=== PATIENT | male | born 1990 | race Caucasian/White ===

== ENCOUNTER 2017-03-05 11:39 | Emergency (ER) | payer BC ==
[2017-03-05 12:43] LABS: A/G RATIO 1.3; ALBUMIN 4.7 g/dL (3.5-5.0); ALKALINE PHOSPHATASE 66 U/L (38-126); ALT 65 U/L (21-72); AST 28 U/L (17-59); BLOOD UREA NITROGEN 7 mg/dL (9-20); CALCIUM 9.9 mg/dL (8.4-10.2); CHLORIDE 105 mmol/L (98-107); EST GLOMERULAR FILTRATION RATE > 60 mL/min; GLUCOSE 100 mg/dL (70-100); POTASSIUM 3.7 mmol/L (3.5-5.1); SODIUM 141 mmol/L (137-145); TOTAL PROTEIN 8.2 g/dL (6.3-8.2)
[2017-03-05 12:57] LABS: BASOPHIL# 0.1 X 10^3uL (0.0-0.1); BASOPHILS 0.8 % (0.0-2.0); EOSINOPHILS# 0.1 X 10^3uL (0.0-0.4); HEMATOCRIT 47.4 % (42.0-54.0); HEMOGLOBIN 16.4 g/dL (14.0-18.0); LYMPHOCYTES# 2.6 X 10^3uL (0.8-3.8); MEAN CELL VOLUME 84.7 fL (80.0-100.0); MEAN CORPUS. HGB CONCENTRATION 34.6 g/dL (32.0-36.0); MEAN CORPUSCULAR HEMOGLOBIN 29.3 pg (29.0-35.0); MEAN PLATELET VOLUME 8.6 fL (7.4-10.4); MONOCYTES 7.3 % (2.0-10.0); MONOCYTES# 0.6 X 10^3uL (0.2-1.0); NEUTROPHILS 57.9 % (54.0-75.0); NEUTROPHILS# 4.6 X 10^3uL (2.6-6.7); PLATELET COUNT 429 X 10^3uL (130-440); RED BLOOD COUNT 5.59 X 10^6uL (4.20-6.10); RED CELL DISTRIBUTION WIDTH 11.9 % (11.5-14.5)
--- NOTE | 2017-03-05 15:36 | CT REPORT ---
HISTORY: Dizziness. COMPARISON: None TECHNIQUE: Axial CT images were obtained through the head and reformatted in coronal planes without the intraven ous administration of contrast. Dose reduction technique was utilized. FINDINGS: There is no acute infarct, hemorrhage, mass, hydrocephalus or midline shift. There is no acute calvarial fracture. The visualized portions of the paranasal sinuses and the bilate ral mastoid air cells are clear. IMPRESSION: Negative CT head examination. Final Electronic Signature: This report was electronically signed by Anders Pham MD on 03/05/20 17 3:34 PM. jesenia /
[2017-03-05] MEDS ORDERED: IBUPROFEN 600 MG TABLET PO ONE (17:41)
[2017-03-05 17:54] LABS: CSF GLUCOSE 51 mg/dL (40-70); CSF TOTAL PROTEIN 40 mg/dL (12-60)
[2017-03-05 18:08] LABS: FLUID COLOR TUBE 1 PINK (COLORLESS); FLUID VOLUME 5 mL
[2017-03-05] MEDS ORDERED: ONDANSETRON ODT 4 MG TAB.RAPDIS ONE (19:07)
[2017-03-05] MEDS ORDERED: ONDANSETRON ODT PREPAC 4 MG TAB.RAPDIS PO ONE (19:22)
--- NOTE | 2017-03-05 19:23 | ER NURSING DOCUMENTATION ---
Nurse's Notes [facility] Name:Anders Ram Age:26 yrs Sex:Male :1990 Arrival Date:03/05/2017 Time:11:39 Bed4 Private MD: Diagnosis:Lyme Disease Presentation: 03/05 11:53 Presenting complaint: Patient states: Weakness, fatigue, joint pain. Transition of lp care: Home. Notified ED Physician of Dr. Mac notified. 11:53 Acuity: GERI 3 lp 11:53 Method Of Arrival: Private Vehicle lp 15:03 Acuity: GERI 2 lpr Triage Assessment: 11:56 General: Appears in no apparent distress, Behavior is appropriate for age. Pain: lp Complains of pain in Joint pain. EENT: No deficits noted. Neuro: No deficits noted. Cardiovascular: Heart tones S1 S2. Respiratory: Breath sounds are clear bilaterally. GI: Bowel sounds present X 4 quads. : No deficits noted. Derm: No deficits noted. Historical: - Allergies: No known drug Allergies; Several food allergies; - Home Meds: 1. doxycycline hyclate 100 mg oral cap 1 cap every 12 hours 2. Flovent Inhl Unknown nightly 3. omeprazole 40 mg oral cpDR 1 cap once daily before a meal 4. probiotics - PMHx: Eosinophilic Esophagitis; - PSHx: None; - Tetanus: unknown. - Ebola Screening: : Patient negative for fever greater than or equal to 101.5 degrees Fahrenheit, and additional compatible Ebola Virus Disease symptoms. Patient denies exposure to infectious person. Patient denies travel to an Ebola-affected area in the 21 days before illness onset. . - Immunization history: Flu Vaccine < 1 year. - Social history: Smoking status: Patient states was never smoker of tobacco. Screenin:57 Infectious Disease Risk None. Abuse screen: Denies threats or abuse. Denies injuries lp from another. Nutritional screening: No deficits noted. Assessment: 11:57 See Triage Assessment done by same RN. lp 19:15 General: Appears in no apparent distress. Pain: Complains of pain in back. Neuro: Level lpr of Consciousness is awake, alert, obeys commands, Oriented to person, place, time. Respiratory: Airway is patent Respiratory effort is even, unlabored, Respiratory pattern is regular, symmetrical. Derm: Skin is pink, warm & dry. Musculoskeletal: Range of motion intact in all extremities. Vital Signs: 11:56 BP 136 / 92; Pulse 88; Resp 16; Temp 98.8(TE); Pulse Ox 98% on R/A; Weight 65 kg; lp Height 6 ft. 0 in. (182.88 cm); Pain 3/10; 17:21 BP 121 / 72 (auto/); lpr 17:25 BP 121 / 72; Pulse 78; Resp 16; Pulse Ox 94% on R/A; Pain 1/10; lc 17:25 Pulse Ox 95% ; lpr 19:20 Pain 6/10; lpr 11:56 Body Mass Index 19.43 (65.00 kg, 182.88 cm) lp ED Course: 11:40 Patient arrived in ED. dp 11:53 Marimar Bailey, MATT is Primary Nurse. lp 11:54 Evert Mac MD is Attending Physician. tl1 11:54 Triage completed. lp 11:[address] Mac notified. lp 11:57 Valuables Remains with patient Patient has correct armband on for positive lp identification. Placed in gown. Bed in low position. Call light in reach. Side rails up X 1. 15:[address] tt 15:42 EKG attached lc 15:42 Procedure consent explained by physician, signed by patient. lpr 17:21 Assist Provider Assist provider with lumbar puncture: Set up LP tray. Performed by Evert Mca MD CSF is clear. is bloody. Other SL BLOODY Puncture site dressed with band aid, Procedure was successful. Patient tolerated well. Administered Medications: 12:19 CANCELLED (Physician Discretion): Doxycycline 200 mg IVPB once lp 12:19 Drug: NS 0.9% 1000 ml; Route: IV; Rate: bolus; Site: left antecubital; lp 13:11 Follow up: Response: No adverse reaction; IV Status: Completed infusion; IV Intake: lp 1000ml 17:26 Drug: Ibuprofen 600 mg; Route: PO; lpr 19:17 Follow up: Response: Pain is decreased lpr 18:59 Drug: HYDROcodone-acetaminophen 5 mg-325 mg 2 tabs; Route: PO; lpr 19:17 Follow up: Response: Pain is decreased lpr 18:59 Drug: Zofran 4 mg; Route: PO; lpr 19:18 Follow up: Response: Nausea is decreased lpr 19:17 Drug: HYDROcodone-acetaminophen (5mg/325 mg) 1-2 tabs 1 tabs; Route: PO; lpr 19:18 Follow up: Response: Pharmacy closed - take home med pack lpr 19:17 Drug: Zofran 1 tablet; Route: PO; lpr 19:18 Follow up: Response: Pharmacy closed - take home med pack lpr Point of Care Testing: Urine Dip: 12:26 pH: 7.0; ; Specific [place]: 1.010; Ketones: Negative; Glucose: Negative; Protein: lp Negative; Leukocytes: Negative; Nitrite: Negative ; Blood: Negative; Bilirubin: Negative ; Urobilinogen: Normal Intake: 13:11 IV: 1000ml; Total: 1000ml. lp Outcome: 13:14 Report given to Samantha Morgan RN 18:59 Discharge ordered by . tl1 19:18 Discharged to home ambulatory, with family. lpr 19:18 Condition: good 19:18 Discharge Assessment: Patient awake, alert and oriented x 3. No cognitive and/or functional deficits noted. Patient verbalized understanding of disposition instructions. 19:18 Discharge instructions given to patient, family, Instructed on discharge instructions, follow up and referral plans. no drinking with medication, no driving heavy equipment. 19:18 IV D/[place] 19:22 Patient left the ED. lpr 03/06 10:27 Discharge F/U Call: Unable to reach: left voicemail: rh 12:57 Discharge F/U Call: Spoke with: patient. Are you having any pain? yes. Pain level is lc 4 / 10 Location and description of pain: back How are you managing your pain? Patient is taking medication: ibuprofen, tylenol, norco Have you filled your prescriptions? yes. Did your discharge instructions answer all of your questions? yes Overall Care on a scale of 1-10 with 10 being the best care, you rate our care as: Other comments: DISCUSSED BACK PAIN WITH DR MAC, TOLD PT TO ICE AND REST TODAY, F/U IF PAIN WORSENS OR NUMBNESS TO LEGS. Signatures: Samantha Morgan RN RN Marimar Bailey RN RN Martha Collado Leslie, RN RN formerly [facility] Sylvester Boateng Tom, MD MD tl1 Irene Joshi Dari Tenorio dp
--- NOTE | 2017-03-05 19:23 | ER PHYSICIAN DOCUMENTATION ---
Physician Documentation [facility] Name:Anders Ram Age:26 yrs Sex:Male :1990 Arrival Date:03/05/2017 Time:11:39 Bed4 Private MD: Evert Aguillon Disposition: 03/07 07:29 Chart complete. tl1 Disposition: 03/05/17 18:59 Discharged to Home/Self Care. Impression: Lyme Disease. - Condition is Good. - Prescriptions for [place] 5- 325 mg Oral Tablet - take 1 tablet by ORAL route every 6 hours As needed; 6 tablet. Zofran 4 mg Oral Tablet - take 1-2 tablet by ORAL route every 4-6 hours As needed; 10 tablet. - Medical Reconciliation form form. - Follow up: Private Physician; When: 4- 6 days; Reason: Recheck today's complaints, Continuance of care. - Problem is new. - Symptoms have improved. HPI: 03/05 11:40 This 26 yrs old Male presents to ER via Private Vehicle with complaints of tl1 generalized weakness, malaise and occasionally, difficulty finishing sentences or continuing with a thought. 11:40 On 03/09 he was bitten by a tick in [place]. A week ago he was diagnosed with Lyme tl1 disease and started on doxycycline. He initially felt a little better, but over the last day or two has noticed increasing malaise, myalgias and joint pain, with subtle speech problems, such as difficulty finishing sentences or subtle mental slowness. He is brought in by family for evaluation. He currently denies h/a, fever or focal neurologic symptoms. Historical: - Allergies: No known drug Allergies; Several food allergies; - Home Meds: 1. doxycycline hyclate 100 mg oral cap 1 cap every 12 hours 2. Flovent Inhl Unknown nightly 3. omeprazole 40 mg oral cpDR 1 cap once daily before a meal 4. probiotics - PMHx: Eosinophilic Esophagitis; - PSHx: None; - Tetanus: unknown. - Ebola Screening: : Patient negative for fever greater than or equal to 101.5 degrees Fahrenheit, and additional compatible Ebola Virus Disease symptoms. Patient denies exposure to infectious person. Patient denies travel to an Ebola-affected area in the 21 days before illness onset. . - Immunization history: Flu Vaccine < 1 year. - Social history: Smoking status: Patient states was never smoker of tobacco. ROS: 11:40 Neuro: Positive for weakness, Negative for dizziness, gait disturbance, headache, tl1 hearing loss, seizure activity. Exam: 11:40 Constitutional: This is a well developed, well nourished patient who is awake, alert, tl1 and in no acute distress. Head/Face: Normocephalic, atraumatic. 11:40 Eyes: Pupils equal round and reactive to light, extra-ocular motions intact. Lids and tl1 lashes normal. Conjunctiva and sclera are non-icteric and not injected. Cornea within normal limits. Periorbital areas with no swelling, redness, or edema. 11:40 ENT: 11:40 Neck: ROM/movement: is normal, is supple, Lymph nodes: no appreciated lymphadenopathy. 11:40 Cardiovascular: Rate: normal. 11:40 Respiratory: Respirations: normal. 11:40 Neuro: Orientation: is normal, Mentation: is normal, Memory: is normal, Cranial nerves: grossly normal, Cerebellar function: is grossly normal, Motor: moves all fours, Gait: is steady, at a normal pace, without difficulty, appropriate for age. Vital Signs: 11:56 BP 136 / 92; Pulse 88; Resp 16; Temp 98.8(TE); Pulse Ox 98% on R/A; Weight 65 kg; lp Height 6 ft. 0 in. (182.88 cm); Pain 3/10; 17:21 BP 121 / 72 (auto/); lpr 17:25 BP 121 / 72; Pulse 78; Resp 16; Pulse Ox 94% on R/A; Pain 1/10; lc 17:25 Pulse Ox 95% ; lpr 19:20 Pain 6/10; lpr 11:56 Body Mass Index 19.43 (65.00 kg, 182.88 cm) lp Procedures: 11:40 Lumbar Puncture: Patient placed in left lateral decubitus position. Prepped with tl1 Betadine. Draped using sterile technique. Collected 7 ml's of clear fluid. bloody fluid. Puncture site dressed with band aid, Patient tolerated well. fluid was initially clear, then became pink, with some clearing toward the end of the colleciton. Initial opening pressure was 12 cm . MDM: 11:40 Data reviewed: vital signs, nurses notes, lab test result(s), csf, radiologic studies, tl1 CT scan, and as a result, I will discharge patient. Counseling: I had a detailed discussion with the patient and/or guardian regarding: the historical points, exam findings, and any diagnostic results supporting the discharge/admit diagnosis, lab results, radiology results, the need for outpatient follow up, with the patient's primary care provider, to return to the emergency department if symptoms worsen or persist or if there are any questions or concerns that arise at home. Response to treatment: There is no appreciated change of the patient's symptoms at this time. Response to treatment: and as a result, I will discharge patient. Physician consultation: Dr Orr was called at 12:00, regarding patient's condition, He advised HCT and LP, WITH no change in therapy if CSF has no WBC. 11:53 Patient medically screened. tl1 15:42 EKG attached lc 03/05 12:56 Order name: COMPREHENSIVE METABOLIC PANEL; Complete Time: 13:34 EDMS 03/05 13:34 Interpretation: Normal. tl1 03/05 12:57 Order name: CBC AUTO DIF, MDIF/RMOR IF IND; Complete Time: 13:34 EDMS 03/05 13:34 Interpretation: Normal: WHITE BLOOD COUNT 8.0; HEMOGLOBIN 16.4; HEMATOCRIT 47.4; tl1 PLATELET COUNT 429. 07 17:56 Order name: CSF GLUCOSE; Complete Time: 18:56 EDMS 03/05 17:56 Order name: CSF TOTAL PROTEIN; Complete Time: 18:56 EDMS 03/05 18:09 Order name: WBC WITH DIF, CSF; Complete Time: 18:56 EDMS 03/05 19:34 Order name: CSF CULTURE AND GRAM STAIN; Complete Time: 07:30 EDMS 03/05 15:39 Order name: CAT SCAN; HEAD W/O CON 16795; Complete Time: 18:56 EDMS 03/07 07:29 Interpretation: NAD. SEE NOTE. tl1 Dispensed Medications: 12:19 CANCELLED (Physician Discretion): Doxycycline 200 mg IVPB once lp 12:19 Drug: NS 0.9% 1000 ml; Route: IV; Rate: bolus; Site: left antecubital; lp 13:11 Follow up: Response: No adverse reaction; IV Status: Completed infusion; IV Intake: lp 1000ml 17:26 Drug: Ibuprofen 600 mg; Route: PO; lpr 19:17 Follow up: Response: Pain is decreased lpr 18:59 Drug: HYDROcodone-acetaminophen 5 mg-325 mg 2 tabs; Route: PO; lpr 19:17 Follow up: Response: Pain is decreased lpr 18:59 Drug: Zofran 4 mg; Route: PO; lpr 19:18 Follow up: Response: Nausea is decreased lpr 19:17 Drug: HYDROcodone-acetaminophen (5mg/325 mg) 1-2 tabs 1 tabs; Route: PO; lpr 19:18 Follow up: Response: Pharmacy closed - take home med pack lpr 19:17 Drug: Zofran 1 tablet; Route: PO; lpr 19:18 Follow up: Response: Pharmacy closed - take home med pack lpr Point of Care Testing: Urine Dip: 12:26 pH: 7.0; ; Specific [place]: 1.010; Ketones: Negative; Glucose: Negative; Protein: lp Negative; Leukocytes: Negative; Nitrite: Negative ; Blood: Negative; Bilirubin: Negative ; Urobilinogen: Normal Signatures: Samantha Morgan RN RN lc Pavlish, Lena, RN RN lp Roberts, Leslie, RN RN lpr Leigh, Tom, MD MD tl1
== END 2017-03-05 19:23 | disposition home or self-care (01) ==
LOC: ER 11:39
DX: A69.20 Lyme disease, unspecified (principal); R53.1 Weakness; Z79.899 Other long term (current) drug therapy
CPT/HCPCS: 62270; 70450; 80053; 82945; 84157; 85007; 85025; 87070; 87205; 89051; 96360; 99284

== ENCOUNTER 2017-03-08 08:50 | Emergency (ER) | payer BC ==
--- NOTE | 2017-03-08 11:43 | ER NURSING DOCUMENTATION ---
Nurse's Notes [facility] Name:Anders Ram Age:26 yrs Sex:Male :1990 Arrival Date:03/08/2017 Time:08:50 Bed3 Private MD: Diagnosis:Lyme Disease Presentation: 03/08 08:59 Acuity: GERI 3 st 09:07 Presenting complaint: Patient states: pt had a spinal tap on Saturday for work up on a st dx of Lyme desies. He has had a headache since. Transition of care: patient was not received from another setting of care. 09:07 Method Of Arrival: Private Vehicle st Triage Assessment: 08:55 General: Appears uncomfortable, Behavior is cooperative. Pain: Complains of pain in st headache Pain currently is 8 out of 10 on a pain scale. Pain began 2-3 days ago. Neuro: Level of Consciousness is awake, alert, Oriented to person, place, time, event, [employer] are equal bilaterally Moves all extremities. Cardiovascular: No deficits noted. Respiratory: No deficits noted. GI: No deficits noted. Historical: - Allergies: No known drug Allergies; - Home Meds: 1. doxycycline hyclate 100 mg oral cap 1 cap every 12 hours 2. Flovent Inhl Unknown nightly 3. omeprazole 40 mg oral cpDR 1 cap once daily before a meal 4. probiotics - PMHx: Eosinophilic Esophagitis; Lyme Disease (March 05, 2017); - PSHx: NONE; - Tetanus: < 10 years. - Ebola Screening: : Patient denies exposure to infectious person. Patient denies travel to an Ebola-affected area in the 21 days before illness onset. . - Immunization history: Unable to Obtain. - Social history: Smoking status: . Screenin:41 Infectious Disease Risk None. Abuse screen: Denies threats or abuse. Denies injuries st from another. Nutritional screening: No deficits noted. Assessment: 09:31 General: pt states headache is better after patch. . st 09:52 General: pt states his headache is gone. pt remains flat. . st 10:36 General: head of bed raised another 10 degrees. pt doing well. . st 10:53 General: pt sat up a little more. pt remains pain free. . st Vital Signs: 08:58 BP 122 / 76 (auto/); Pulse 76; Pain 8/10; st 08:59 Pulse Ox 98% ; st 09:30 BP 115 / 69 (auto/); Pulse 71; st 09:34 Pulse Ox 98% ; st 09:45 BP 109 / 63 (auto/); Pulse 72; st 09:49 Pulse Ox 96% ; st 09:52 Pain 0/10; st 10:00 BP 121 / 71 (auto/); Pulse 78; st 10:04 Pulse Ox 94% ; st 10:15 BP 109 / 71 (auto/); Pulse 69; st 10:19 Pulse Ox 96% ; st 10:30 BP 112 / 67 (auto/); Pulse 70; st 10:34 Pulse Ox 96% ; st 10:45 BP 113 / 70 (auto/); Pulse 71; st 10:49 Pulse Ox 94% ; st 11:00 BP 122 / 70 (auto/); Pulse 70; st 11:04 Pulse Ox 94% ; st 11:15 BP 110 / 74 (auto/); Pulse 62; st 11:19 Pulse Ox 96% ; st 11:30 BP 120 / 83 (auto/); Pulse 68; st ED Course: 08:52 Patient arrived in ED. ama 08:54 Carlos Dimas MD is Attending Physician. be 08:59 Brenda Nicolas RN is Primary Nurse. st 08:[address] 09:30 Assist Provider blood patch preformed by Hola De Leon. st 09:31 Oxygen O2 via during proceeder only. st 09:31 Inserted peripheral IV: 20 gauge in right antecubital area and blood collected. st 11:41 Valuables Remains with patient. st Administered Medications: 09:32 Drug: NS 0.9% 1000 ml; Route: IV; Rate: bolus; Site: right antecubital; st 11:42 Follow up: IV Status: Completed infusion; IV Intake: 700ml st Intake: 11:42 IV: 700ml; Total: 700ml. st Outcome: 11:41 Discharged to home ambulatory. st 11:41 Condition: improved 11:41 Discharge instructions given to patient, Instructed on discharge instructions, follow up and referral plans. 11:42 No charge visit due to pt came in for an out pt blood patch.. st 11:43 Discharge ordered by . st 11:43 Patient [address] the ED. st 0708 09:22 Discharge F/U Call: Unable to reach: no answer st Signatures: Brenda Nicolas, RN RN st Carlos Dimas MD MD be Averdick, Andrew, Reg Reg ama
--- NOTE | 2017-03-10 11:43 | ER PHYSICIAN DOCUMENTATION ---
Physician Documentation [facility] Name:Anders Ram Age:26 yrs Sex:Male :1990 Arrival Date:03/08/2017 Time:08:50 Bed3 Private MD: Carlos Nguyen Disposition: 03/08/17 11:43 Discharged to Home/Self Care. Impression: Lyme Disease. - Condition is Good. - Medical Reconciliation form form. - Follow up: Emergency Department; When: As needed. HPI: 03/08 12:33 This 26 yrs old Male presents to ER via Private Vehicle with complaints of be Headache. 12:33 Onset: The symptoms/episode began/occurred gradually, and became persistent and worse be with upright positioning. Associated signs and symptoms: Pertinent positives: dizziness, nausea, Pertinent negatives: altered mental status, fever. Severity of symptoms: At its worst the pain was severe, just prior to arrival. diagnostic LP by Dr. Mac. Historical: - Allergies: No known drug Allergies; - Home Meds: 1. doxycycline hyclate 100 mg oral cap 1 cap every 12 hours 2. Flovent Inhl Unknown nightly 3. omeprazole 40 mg oral cpDR 1 cap once daily before a meal 4. probiotics - PMHx: Eosinophilic Esophagitis; Lyme Disease (March 05, 2017); - PSHx: NONE; - Tetanus: < 10 years. - Ebola Screening: : Patient denies exposure to infectious person. Patient denies travel to an Ebola-affected area in the 21 days before illness onset. . - Immunization history: Unable to Obtain. - Social history: Smoking status: . ROS: 12:33 Neuro: Positive for headache, Negative for altered mental status. be 12:33 All other systems are negative. Exam: 12:33 Constitutional: This is a well developed, well nourished patient who is awake, alert, be and in no acute distress. 12:33 Eyes: Pupils: equal, round, and reactive to light and accomodation. 12:33 Neck: ROM/movement: no acute changes, nuchal rigidity, is not appreciated. Vital Signs: 08:58 BP 122 / 76 (auto/); Pulse 76; Pain 8/10; st 08:59 Pulse Ox 98% ; st 09:30 BP 115 / 69 (auto/); Pulse 71; st 09:34 Pulse Ox 98% ; st 09:45 BP 109 / 63 (auto/); Pulse 72; st 09:49 Pulse Ox 96% ; st 09:52 Pain 0/10; st 10:00 BP 121 / 71 (auto/); Pulse 78; st 10:04 Pulse Ox 94% ; st 10:15 BP 109 / 71 (auto/); Pulse 69; st 10:19 Pulse Ox 96% ; st 10:30 BP 112 / 67 (auto/); Pulse 70; st 10:34 Pulse Ox 96% ; st 10:45 BP 113 / 70 (auto/); Pulse 71; st 10:49 Pulse Ox 94% ; st 11:00 BP 122 / 70 (auto/); Pulse 70; st 11:04 Pulse Ox 94% ; st 11:15 BP 110 / 74 (auto/); Pulse 62; st 11:19 Pulse Ox 96% ; st 11:30 BP 120 / 83 (auto/); Pulse 68; st Procedures: 12:33 Performed Blood patch performed by HEATH Simental. be MDM: 08:54 Patient medically screened. be 12:33 Data reviewed: vital signs, nurses notes, old medical records, and as a result, I will be discharge patient, administer IV fluids, NS bolus. Dispensed Medications: 09:32 Drug: NS 0.9% 1000 ml; Route: IV; Rate: bolus; Site: right antecubital; st 11:42 Follow up: IV Status: Completed infusion; IV Intake: 700ml st Signatures: Brenda Nicolas RN RN Carlos Howard MD MD be
== END 2017-03-08 11:43 | disposition home or self-care (01) ==
LOC: ER 08:50
DX: A69.20 Lyme disease, unspecified (principal); G97.1 Other reaction to spinal and lumbar puncture; Z79.899 Other long term (current) drug therapy
CPT/HCPCS: 62270; 96360; 96361